=== PATIENT | male | born 1940 | race Caucasian/White ===

== ENCOUNTER 2017-07-20 14:45 | Emergency (ER) | payer MEDICARE, BC ==
[2017-07-20 15:04] VITALS: BP 140/74
[2017-07-20] MEDS ORDERED: HYDROmorphone 1 MG/ML Syringe IM ONE (15:24)
[2017-07-20] MEDS ORDERED: Ketorolac 60 MG/2 ML SDV IM ONE (15:25)
--- NOTE | 2017-07-20 15:31 | EDM.PDOC ---
ED HPI GENERAL MEDICAL PROBLEM - General Chief Complaint: Lower Extremity Injury/Pain Stated Complaint: LEFT HIP PAIN Time Seen by Provider: 07/20/17 15:26 Source of Information: Reports: Patient, Family History Limitations: Reports: No Limitations - History of Present Illness INITIAL COMMENTS - FREE TEXT/NARRATIVE: pt is scheduled for a total hip with Dr Gilmore for September 08. The pt was walking in some deep snow and after that he has been very uncomfortable. He presently is on a tapering course of predisone which was given him at the clinic. He ths far does not feel it has been helpful. Duration: Day(s): Location: Reports: Lower Extremity, Left Associated Symptoms: Reports: No Other Symptoms - Related Data Allergies Allergy/AdvReac Type Severity Reaction Status Date / Time meperidine HCl [From Demerol] Allergy Rash Verified 07/21/17 22:19 amoxicillin AdvReac Diarrhea Verified 07/21/17 22:19 Home Meds: Home Meds Aspirin 325 mg PO DAILY 11/01/13 [History] Lisinopril 20 mg PO DAILY 11/01/13 [History] Simvastatin [Zocor] 20 mg PO BEDTIME 11/01/13 [History] Fenofibrate 160 mg PO DAILY 05/11/15 [History] metFORMIN HCl [Metformin HCl ER] 500 mg PO BID 05/11/15 [History] Albuterol [Ventolin HFA] 1 - 2 puff IH Q4H PRN 07/14/15 [History] glipiZIDE [Glucotrol] 10 mg PO DAILY 07/14/15 [History] Pantoprazole Sodium [Protonix] 40 mg PO DAILY 05/14/16 [History] amLODIPine [Norvasc] 07/20/17 [History] predniSONE [Prednisone] 1 tab PO DAILY 07/20/17 [History] Past Medical History HEENT History: Reports: Epistaxis, Hard of Hearing Other HEENT History: - Cardiovascular History: Reports: Heart Murmur, High Cholesterol, Hypertension, Other (See Below) Other Cardiovascular History: elevated triglycerides Respiratory History: Reports: Asthma Gastrointestinal History: Reports: GERD Musculoskeletal History: Reports: Back Pain, Chronic, Fracture, Neck Pain, Chronic Neurological History: Reports: Concussion Endocrine/Metabolic History: Reports: Diabetes, Type II, Obesity/BMI 30+ Dermatologic History: Reports: Other (See Below) Other Dermatologic History: chronic wound left foot - Infectious Disease History Infectious Disease History: Reports: Chicken Pox, Measles, Mumps - Past Surgical History GI Surgical History: Reports: Colonoscopy Musculoskeletal Surgical History: Reports: Arthroscopic Knee, Other (See Below) Social & Family History - Tobacco Use Smoking Status *Q: Never Smoker Used Tobacco, but Quit: Yes Month/Year Tobacco Last Used: 0 Second Hand Smoke Exposure: No - Caffeine Use Caffeine Use: Reports: Coffee - Recreational Drug Use Recreational Drug Use: No - Living Situation & Occupation Living situation: Reports: Occupation: Retired Review of Systems - Review of Systems Review Of Systems: See Below Constitutional: Reports: No Symptoms Eyes: Reports: No Symptoms Ears: Reports: No Symptoms Nose: Reports: No Symptoms Mouth/Throat: Reports: No Symptoms Respiratory: Reports: No Symptoms Cardiovascular: Reports: No Symptoms GI/Abdominal: Reports: No Symptoms Genitourinary: Reports: No Symptoms Musculoskeletal: Reports: Other (pain in th left hip) Skin: Reports: No Symptoms Neurological: Reports: No Symptoms ED EXAM, GENERAL - Physical Exam Exam: See Below Free Text/Narrative:: pt is having severe pain in the left hip over the joint capsule and toward the front of the leg. He has no pain down the back of the leg. Exam Limited By: No Limitations General Appearance: Alert, Anxious Extremities: Other ( tender over the joint capsule and by the groin. ) Course - Vital Signs Last Recorded V/S: Last Vital Signs Temp 35.2 C 07/20/17 15:11 Pulse 83 07/20/17 15:11 Resp 20 07/20/17 15:11 BP 140/74 07/20/17 15:11 Pulse Ox 98 07/20/17 15:11 - Orders/Labs/Meds Meds: Medications Discontinued Medications Generic Name Dose Route Start Last Admin Trade Name Freq PRN Reason Stop Dose Admin Hydromorphone HCl 1 mg 07/20/17 15:24 07/20/17 15:32 Dilaudid IM 07/20/17 15:25 1 mg ONETIME ONE Administration Ketorolac Tromethamine 60 mg 07/20/17 15:25 07/20/17 15:32 Toradol IM 07/20/17 15:26 60 mg ONETIME ONE Administration - Re-Assessments/Exams Free Text/Narrative Re-Assessment/Exam: 07/20/17 15:32 Pt was given torodol 60mgim and dilaudid 1 mg im Departure - Departure Time of Disposition: 16:50 Disposition: Home, Self-Care 01 Condition: Fair Clinical Impression: Degenerative arthritis of hip - Discharge Information Instructions: Arthritis, [id number] Referrals: Kj Zhang MD [Primary Care Provider] - Forms: ED Department Discharge Care Plan Goals: moist warm packs to the area, finish the predisone, when the predisone is done start motrin 600mg tid for the next 10 days and then stop, percocet 5/325 q6h prn for pain. If the pain is not improving consider calling Dr Gilmore and see if there is any possibility this can be done sooner
== END 2017-07-20 16:49 | disposition home or self-care (01) ==
LOC: JP.ED 14:45
DX: M16.12 Unilateral primary osteoarthritis, left hip (principal); E78.00 Pure hypercholesterolemia, unspecified; I10 Essential (primary) hypertension; J45.909 Unspecified asthma, uncomplicated; K21.9 Gastro-esophageal reflux disease without esophagitis; E11.9 Type 2 diabetes mellitus without complications; E66.9 Obesity, unspecified; Z88.1 Allergy status to other antibiotic agents; Z88.8 Allergy status to other drugs, medicaments and biological substances; Z79.82 Long term (current) use of aspirin; Z79.899 Other long term (current) drug therapy; Z79.84 Long term (current) use of oral hypoglycemic drugs; Z68.35 Body mass index [BMI] 35.0-35.9, adult
CPT/HCPCS: 96372; 99283; J1170; J1885

== ENCOUNTER 2017-07-21 20:04 | Emergency (ER) | payer MEDICARE, BC ==
[2017-07-21 20:44] VITALS: BP 147/73
--- NOTE | 2017-07-21 22:56 | EDM.PDOC ---
ED HPI GENERAL MEDICAL PROBLEM - General Chief Complaint: Lower Extremity Injury/Pain Stated Complaint: HIP AND LEG PAIN Time Seen by Provider: 07/21/17 22:46 Source of Information: Reports: Patient, Family, Old Records, RN Notes Reviewed History Limitations: Reports: No Limitations - History of Present Illness INITIAL COMMENTS - FREE TEXT/NARRATIVE: 77-year-old gentleman presents to the emergency department day complaint of leg pain, he has known history of degenerative joint disease is scheduled to have hip replacement done on the left hip September 08 however the surgeries postponed secondary to his elevated A1c. He was evaluated in the emergency department yesterday for hip pain was treated with both Toradol and Dilaudid he states he received no relief from either of these medications, does use Percocet at home also states he receives no relief from these medications. He states over the last 24 hours he has had an increase in swelling around the knee as well as the calf Left Leg Pain Score (Numeric/FACES): 10 - Related Data Allergies Allergy/AdvReac Type Severity Reaction Status Date / Time meperidine HCl [From Demerol] Allergy Rash Verified 07/21/17 22:19 amoxicillin AdvReac Diarrhea Verified 07/21/17 22:19 Home Meds: Home Meds Aspirin 325 mg PO DAILY 11/01/13 [History] Lisinopril 20 mg PO DAILY 11/01/13 [History] Simvastatin [Zocor] 20 mg PO BEDTIME 11/01/13 [History] Fenofibrate 160 mg PO DAILY 05/11/15 [History] metFORMIN HCl [Metformin HCl ER] 500 mg PO BID 05/11/15 [History] Albuterol [Ventolin HFA] 1 - 2 puff IH Q4H PRN 07/14/15 [History] glipiZIDE [Glucotrol] 10 mg PO DAILY 07/14/15 [History] Pantoprazole Sodium [Protonix] 40 mg PO DAILY 05/14/16 [History] amLODIPine [Norvasc] 07/20/17 [History] predniSONE [Prednisone] 1 tab PO DAILY 07/20/17 [History] Past Medical History HEENT History: Reports: Epistaxis, Hard of Hearing, Impaired Vision Other HEENT History: - Cardiovascular History: Reports: Heart Murmur, High Cholesterol, Hypertension, SOB on Exertion, Other (See Below) Other Cardiovascular History: elevated triglycerides Respiratory History: Reports: Asthma Gastrointestinal History: Reports: GERD Musculoskeletal History: Reports: Back Pain, Chronic, Fracture, Neck Pain, Chronic Neurological History: Reports: Concussion Endocrine/Metabolic History: Reports: Diabetes, Type II, Obesity/BMI 30+ Dermatologic History: Reports: Other (See Below) Other Dermatologic History: chronic wound left foot - Infectious Disease History Infectious Disease History: Reports: Chicken Pox, Measles, Mumps - Past Surgical History HEENT Surgical History: Reports: Adenoidectomy, Tonsillectomy GI Surgical History: Reports: Colonoscopy, Hernia, Inguinal Musculoskeletal Surgical History: Reports: Arthroscopic Knee, Other (See Below) Social & Family History - Family History Family Medical History: Noncontributory - Tobacco Use Smoking Status *Q: Never Smoker Used Tobacco, but Quit: Yes Month/Year Tobacco Last Used: 0 Second Hand Smoke Exposure: No - Caffeine Use Caffeine Use: Reports: Coffee - Recreational Drug Use Recreational Drug Use: No - Living Situation & Occupation Living situation: Reports: Occupation: Retired Review of Systems - Review of Systems Review Of Systems: See Below Constitutional: Reports: No Symptoms Musculoskeletal: Reports: Leg Pain, Joint Pain (Hip and knee pain) ED EXAM, GENERAL - Physical Exam Exam: See Below Free Text/Narrative:: Examination of the left lower extremity I don't appreciate any erythema there is he does have some edema appreciated about the knee is not particularly tender to touch along the joint line medially or laterally he is tender to touch over the greater trochanter on the left side and he has some edema appreciated in the calf it is tight but not tender to touch when compared to the right calf Exam Limited By: No Limitations General Appearance: Alert, WD/WN, No Apparent Distress Respiratory/Chest: No Respiratory Distress Course - Vital Signs Last Recorded V/S: Last Vital Signs Temp 97.6 F 07/21/17 22:22 Pulse 68 07/21/17 22:22 Resp 18 07/21/17 22:22 BP 147/73 H 07/21/17 22:22 Pulse Ox 97 07/21/17 22:22 - Orders/Labs/Meds Orders: Active Orders 24 hr Category Date Time Status CBC WITH AUTO DIFF [HEME] Stat Lab 07/21/17 23:00 Results ESR [SEDIMENTATION RATE MANUAL] [HEME] Stat Lab 07/21/17 23:00 Results URIC ACID [CHEM] Stat Lab 07/21/17 23:00 Ordered Labs: Laboratory Tests 07/21/17 07/21/17 07/21/17 Range/Units 23:00 23:00 23:00 WBC 9.7 (4.5-11.0) K/uL RBC 3.81 L (4.30-5.90) M/uL Hgb 12.4 (12.0-15.0) g/dL Hct 35.5 L (40.0-54.0) % MCV 93 (80-98) fL MCH 33 H (27-31) pg MCHC 35 (32-36) % Plt Count 308 (150-400) K/uL Neut % (Auto) 69 H (36-66) % Lymph % (Auto) 20 L (24-44) % Piatt % (Auto) 11 H (2-6) % Eos % (Auto) 0 L (2-4) % Baso % (Auto) 0 (0-1) % D-Dimer, Quantitative < 100 (0.0-400.0) ng/mL Sodium (140-148) mmol/L Potassium (3.6-5.2) mmol/L Chloride (100-108) mmol/L Carbon Dioxide (21-32) mmol/L Anion Gap (5.0-14.0) mmol/L BUN (7-18) mg/dL Creatinine (0.8-1.3) mg/dL Est Cr Clr Drug Dosing mL/min Estimated GFR (MDRD) (>60) Glucose (74-106) mg/dL Uric Acid (3.5-7.2) mg/dL Calcium (8.5-10.1) mg/dL C-Reactive Protein 0.08 (0.0-0.3) mg/dL 07/21/17 07/21/17 Range/Units 23:00 23:00 WBC (4.5-11.0) K/uL RBC (4.30-5.90) M/uL Hgb (12.0-15.0) g/dL Hct (40.0-54.0) % MCV (80-98) fL MCH (27-31) pg MCHC (32-36) % Plt Count (150-400) K/uL Neut % (Auto) (36-66) % Lymph % (Auto) (24-44) % [place] % (Auto) (2-6) % Eos % (Auto) (2-4) % Baso % (Auto) (0-1) % D-Dimer, Quantitative (0.0-400.0) ng/mL Sodium 136 L (140-148) mmol/L Potassium 4.7 (3.6-5.2) mmol/L Chloride 99 L (100-108) mmol/L Carbon Dioxide 30 (21-32) mmol/L Anion Gap 11.7 (5.0-14.0) mmol/L BUN 29 H (7-18) mg/dL Creatinine 1.1 (0.8-1.3) mg/dL Est Cr Clr Drug Dosing 52.36 mL/min Estimated GFR (MDRD) > 60 (>60) Glucose 226 H (74-106) mg/dL Uric Acid 3.0 L (3.5-7.2) mg/dL Calcium 9.4 (8.5-10.1) mg/dL C-Reactive Protein (0.0-0.3) mg/dL Departure - Departure Time of Disposition: 00:11 Disposition: Home, Self-Care 01 Condition: Fair Clinical Impression: Leg pain Qualifiers: Laterality: left Qualified Code(s): M79.605 - Pain in left leg - Discharge Information Referrals: Tito Galaviz MD [Primary Care Provider] - Forms: ED Department Discharge Additional Instructions: Continue to use ice and elevation as well as Olivier wrap for leg swelling, please keep your follow-up appointment with orthopedics, follow with primary care in 3- 5 days if not better - My Orders Last 24 Hours: My Active Orders 07/21/17 23:00 CBC WITH AUTO DIFF [HEME] Stat ESR [SEDIMENTATION RATE MANUAL] [HEME] Stat URIC ACID [CHEM] Stat - Assessment/Plan Last 24 Hours: My Active Orders 07/21/17 23:00 CBC WITH AUTO DIFF [HEME] Stat ESR [SEDIMENTATION RATE MANUAL] [HEME] Stat URIC ACID [CHEM] Stat Plan: Assessment Acuity = acute Site and laterality = left leg pain Etiology = probably related to osteoarthritis Manifestations = none Location of injury = Home Lab values = CMP unremarkable CBC unremarkable uric acid negative, d-dimer negative Plan He is going to use ice and elevation he does have Percocet at home he will use if needed , follow up with primary care 3-5 days if not better This note was dictated using [employer] voice recognition software please call with any questions on syntax or greer.
== END 2017-07-22 00:36 | disposition home or self-care (01) ==
LOC: JP.ED 20:04
DX: M79.605 Pain in left leg (principal); I10 Essential (primary) hypertension; E66.9 Obesity, unspecified; E11.9 Type 2 diabetes mellitus without complications; J45.909 Unspecified asthma, uncomplicated; Z88.1 Allergy status to other antibiotic agents; Z88.8 Allergy status to other drugs, medicaments and biological substances; Z79.82 Long term (current) use of aspirin; Z79.899 Other long term (current) drug therapy
CPT/HCPCS: 36415; 80048; 84550; 85025; 85379; 85651; 86140; 99284

== ENCOUNTER 2017-07-26 18:44 | Emergency (ER) | payer MEDICARE, BC ==
[2017-07-26 18:59] VITALS: BP 123/92
[2017-07-26] MEDS ORDERED: HYDROmorphone 1 MG/ML Syringe IM ONE (19:10)
--- NOTE | 2017-07-26 19:17 | EDM.PDOC ---
ED HPI GENERAL MEDICAL PROBLEM - General Chief Complaint: Lower Extremity Injury/Pain Stated Complaint: HIP HURTS NOT AN ACCIDENT Time Seen by Provider: 07/26/17 19:14 Source of Information: Reports: Patient History Limitations: Reports: No Limitations - History of Present Illness INITIAL COMMENTS - FREE TEXT/NARRATIVE: pt arrived with svre pain in the whole left leg. He has pain over the buttock going down the back of the leg and coming around to the groin. He states in the last 2 days he thinks it has gotten much worse. He is bearly able to walk on it. He is just finishing his last predisone. Onset: Gradual Duration: Day(s):, Getting Worse Location: Reports: Back, Lower Extremity, Left Associated Symptoms: Reports: No Other Symptoms Left Hip Pain Score (Numeric/FACES): 10 - Related Data Allergies Allergy/AdvReac Type Severity Reaction Status Date / Time meperidine HCl [From Demerol] Allergy Rash Verified 07/26/17 19:00 amoxicillin AdvReac Diarrhea Verified 07/26/17 19:00 Home Meds: Home Meds Aspirin 325 mg PO DAILY 11/01/13 [History] Lisinopril 20 mg PO DAILY 11/01/13 [History] Simvastatin [Zocor] 20 mg PO BEDTIME 11/01/13 [History] Fenofibrate 160 mg PO DAILY 05/11/15 [History] metFORMIN HCl [Metformin HCl ER] 500 mg PO BID 05/11/15 [History] Albuterol [Ventolin HFA] 1 - 2 puff IH Q4H PRN 07/14/15 [History] glipiZIDE [Glucotrol] 10 mg PO DAILY 07/14/15 [History] Pantoprazole Sodium [Protonix] 40 mg PO DAILY 05/14/16 [History] amLODIPine [Norvasc] 1 tab PO DAILY 07/20/17 [History] predniSONE [Prednisone] 2 tab PO DAILY 07/20/17 [History] Past Medical History HEENT History: Reports: Epistaxis, Hard of Hearing, Impaired Vision Other HEENT History: - Cardiovascular History: Reports: Heart Murmur, High Cholesterol, Hypertension, SOB on Exertion, Other (See Below) Other Cardiovascular History: elevated triglycerides Respiratory History: Reports: Asthma Gastrointestinal History: Reports: GERD Musculoskeletal History: Reports: Back Pain, Chronic, Fracture, Neck Pain, Chronic Neurological History: Reports: Concussion Endocrine/Metabolic History: Reports: Diabetes, Type II, Obesity/BMI 30+ Dermatologic History: Reports: Other (See Below) Other Dermatologic History: chronic wound left foot - Infectious Disease History Infectious Disease History: Reports: Chicken Pox, Measles, Mumps - Past Surgical History GI Surgical History: Reports: Colonoscopy, Hernia, Inguinal Musculoskeletal Surgical History: Reports: Arthroscopic Knee, Other (See Below) Social & Family History - Family History Family Medical History: Noncontributory - Tobacco Use Smoking Status *Q: Unknown Ever Smoked Used Tobacco, but Quit: Yes Month/Year Tobacco Last Used: 0 Second Hand Smoke Exposure: No - Caffeine Use Caffeine Use: Reports: Coffee - Recreational Drug Use Recreational Drug Use: No - Living Situation & Occupation Living situation: Reports: Occupation: Retired Review of Systems - Review of Systems Review Of Systems: See Below Constitutional: Reports: No Symptoms Eyes: Reports: No Symptoms Ears: Reports: No Symptoms Nose: Reports: No Symptoms Mouth/Throat: Reports: No Symptoms Respiratory: Reports: No Symptoms Cardiovascular: Reports: No Symptoms GI/Abdominal: Reports: No Symptoms Genitourinary: Reports: No Symptoms Musculoskeletal: Reports: Other ( severe pain in the lft hip and left lumbar area. ) ED EXAM, GENERAL - Physical Exam Exam: See Below Free Text/Narrative:: pt arrived with pain in the left hip and leg. He has severe pain going down the back of the left leg. He is very tender in the calf of the leg. He has known lumbar disc disease. Exam Limited By: No Limitations General Appearance: Severe Distress Ears: Normal TMs Nose: Normal Inspection Throat/Mouth: Normal Inspection Head: Atraumatic Neck: Normal Inspection Respiratory/Chest: No Respiratory Distress Cardiovascular: Regular Rate, Rhythm GI/Abdominal: Soft, Non-Tender (Male) Exam: Deferred Rectal (Males) Exam: Deferred Back Exam: Other ( Pt ids markedly tender in the left lumbar area. He has a positive straight leg raising. He has normal pulse in his fet. ) Neurological: Alert, Oriented, Normal Cognition, Other (pt is very uncomfortable. ) Course - Vital Signs Last Recorded V/S: Last Vital Signs Temp 36.6 C 07/26/17 18:59 Pulse 107 H 07/26/17 18:59 Resp 20 07/26/17 18:59 BP 123/92 H 07/26/17 18:59 Pulse Ox 97 07/26/17 18:59 - Orders/Labs/Meds Orders: Active Orders 24 hr Category Date Time Status Hip Min 2V or 3V w Pelvis Lt [CR] Stat Exams 07/26/17 19:11 Taken Lumbar Spine 2 or 3V [CR] Stat Exams 07/26/17 19:11 Taken VL Duplex Lwr Ext Veins Ltd Lt [US] Stat Exams 07/26/17 19:10 Taken Labs: Laboratory Tests 07/26/17 07/26/17 Range/Units 19:29 19:29 WBC 9.7 (4.5-11.0) K/uL RBC 3.89 L (4.30-5.90) M/uL Hgb 12.6 (12.0-15.0) g/dL Hct 36.6 L (40.0-54.0) % MCV 94 (80-98) fL MCH 32 H (27-31) pg MCHC 34 (32-36) % Plt Count 335 (150-400) K/uL Neut % (Auto) 81 H (36-66) % Lymph % (Auto) 11 L (24-44) % [place] % (Auto) 8 H (2-6) % Eos % (Auto) 0 L (2-4) % Baso % (Auto) 0 (0-1) % Sodium 132 L (140-148) mmol/L Potassium 4.7 (3.6-5.2) mmol/L Chloride 96 L (100-108) mmol/L Carbon Dioxide 27 (21-32) mmol/L Anion Gap 13.7 (5.0-14.0) mmol/L BUN 18 (7-18) mg/dL Creatinine 1.2 (0.8-1.3) mg/dL Est Cr Clr Drug Dosing 48.00 mL/min Estimated GFR (MDRD) 59 L (>60) Glucose 476 H* (74-106) mg/dL Calcium 8.9 (8.5-10.1) mg/dL Total Bilirubin 0.3 (0.2-1.0) mg/dL AST 19 (15-37) U/L ALT 30 (12-78) U/L Alkaline Phosphatase 157 H (46-116) U/L Total Protein 7.0 (6.4-8.2) g/dL Albumin 4.1 (3.4-5.0) g/dL Globulin 2.9 (2.3-3.5) g/dL Albumin/Globulin Ratio 1.4 (1.2-2.2) Meds: Medications Discontinued Medications Generic Name Dose Route Start Last Admin Trade Name Freq PRN Reason Stop Dose Admin Cyclobenzaprine HCl 10 mg 07/26/17 20:27 07/26/17 20:34 Flexeril PO 07/26/17 20:28 10 mg ONETIME ONE Administration Hydromorphone HCl 1 mg 07/26/17 19:10 07/26/17 19:20 Dilaudid IM 07/26/17 19:11 1 mg ONETIME ONE Administration Insulin Human Regular 5 unit 07/26/17 20:00 07/26/17 20:18 Novolin R SUBCUT 07/26/17 20:01 5 unit ONETIME ONE Administration Protocol Oxycodone/Acetaminophen 1 tab 07/26/17 20:28 07/26/17 20:34 Percocet 325-10 Mg PO 07/26/17 20:29 1 tab ONETIME ONE Administration - Re-Assessments/Exams Free Text/Narrative Re-Assessment/Exam: 07/26/17 20:33 pt was given dilaudid 1 mg im with some relief. He was also given flexeril 10mg and percocet 10/325 po. .. His bs is very high from the predisone. He was given insulin 5 mg subq. Departure - Departure Time of Disposition: 20:36 Disposition: Home, Self-Care 01 Condition: Fair Clinical Impression: Lumbar disc disease with radiculopathy, Degenerative arthritis of hip - Discharge Information Referrals: PCP,None [Primary Care Provider] - Forms: ED Department Discharge Care Plan Goals: rtc Friday for a MRI of lumbar spin , appt with Dr Gilmore at the clinic, flexeril 10mg hs, percocet 5/325 2 tabs q6h, taper predisone because of the high sugars sugars, 1 tab tomorrow, 1/2 tab the next day then stop, cont ice to the site. - My Orders Last 24 Hours: My Active Orders 07/26/17 19:10 VL Duplex Lwr Ext Veins Ltd Lt [US] Stat 07/26/17 19:11 Hip Min 2V or 3V w Pelvis Lt [CR] Stat Lumbar Spine 2 or 3V [CR] Stat - Assessment/Plan Last 24 Hours: My Active Orders 07/26/17 19:10 VL Duplex Lwr Ext Veins Ltd Lt [US] Stat 07/26/17 19:11 Hip Min 2V or 3V w Pelvis Lt [CR] Stat Lumbar Spine 2 or 3V [CR] Stat
[2017-07-26] MEDS ORDERED: Insulin Regular, Human 100 Units/ML 10 ML Vial SUBCUT ONE (20:00)
[2017-07-26] MEDS ORDERED: Cyclobenzaprine 10 MG Tab PO ONE (20:27)
[2017-07-26] MEDS ORDERED: Acetaminophen/oxyCODONE 325-10 MG Tab PO ONE (20:28)
--- NOTE | 2017-07-28 09:41 | CR ---
Hip Min 2V or 3V w Pelvis Lt CLINICAL HISTORY: Left hip pain FINDINGS: No acute fracture or dislocation is noted. No destructive changes are present. The joint sp aces are mildly narrowed bilaterally. There is moderate acetabular spurring bilaterally. The there is the calf type deformity in the proximal left femur. 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
--- NOTE | 2017-07-28 09:43 | CR ---
Lumbar Spine 2 or 3V CLINICAL HISTORY: Back and left leg pain FINDINGS: The vertebral body heights are maintained. Vertebral body heights are maintained. There is the diffuse spondylosis. There is disc space narrowing at L5-S1 and L2-3.There are some osteoarthriti c changes in the lower lumbar facets. There is a grade the 1 retrolisthesis of L1 on L2 and L2 on L3. This is secondary to the facet disease. IMPRESSION: Diffuse degenerative disc disease Facet osteoarthropathy No fracture
--- NOTE | 2017-07-28 09:45 | US ---
VL Duplex Lwr Ext Veins Ltd Lt CLINICAL HISTORY: Left leg swelling FINDINGS: Real-time and Doppler images are obtained for left lower extremity. No filling defects are identified in the deep venous system. All veins were compressible in the calf and thigh. There was au gmentation demonstrated throughout IMPRESSION: No evidence of deep venous thrombosis in the left lower extremity
== END 2017-07-26 20:59 | disposition home or self-care (01) ==
LOC: JP.ED 18:44
DX: M54.16 Radiculopathy, lumbar region (principal); K21.9 Gastro-esophageal reflux disease without esophagitis; E78.00 Pure hypercholesterolemia, unspecified; I10 Essential (primary) hypertension; J45.909 Unspecified asthma, uncomplicated; M16.12 Unilateral primary osteoarthritis, left hip; Z88.1 Allergy status to other antibiotic agents; Z88.8 Allergy status to other drugs, medicaments and biological substances; Z79.82 Long term (current) use of aspirin; Z79.899 Other long term (current) drug therapy
CPT/HCPCS: 36415; 72100; 73502; 80053; 85025; 93971; 96372; 99284; A9270; J1170

== ENCOUNTER 2019-01-01 11:57 | Emergency (ER) | payer MEDICARE, BC ==
[2019-01-01 12:10] VITALS: BP 149/74; PULSE 65
--- NOTE | 2019-01-01 12:51 | EDM.PDOC ---
ED HPI GENERAL MEDICAL PROBLEM - General Chief Complaint: Abdominal Pain Stated Complaint: STOMACH PAIN ON LEFT SIDE Time Seen by Provider: 01/01/19 12:26 Source of Information: Reports: Patient, Family, Old Records, RN Notes Reviewed History Limitations: Reports: No Limitations - History of Present Illness INITIAL COMMENTS - FREE TEXT/NARRATIVE: 78-year-old gentleman presents emergency department today complaint of abdominal pain, he states that abdominal pain for 5 days describes it more on the left side of his abdomen he is very sensitive to any touch, no nausea vomiting shortness of breath fevers difficulty with bowel movements. Was in the clinic 2 days ago evaluation included blood work and CT scan, CT scan demonstrated some hydronephrosis on the left side but no stone was appreciated Left Lower Abdomen Pain Score (Numeric/FACES): 8 - Related Data Allergies Allergy/AdvReac Type Severity Reaction Status Date / Time meperidine HCl [From Demerol] Allergy Rash Verified 01/01/19 12:16 amoxicillin AdvReac Diarrhea Verified 01/01/19 12:16 Home Meds: Home Meds Aspirin 81 mg PO DAILY 11/01/13 [History] Lisinopril 20 mg PO DAILY 11/01/13 [History] Fenofibrate 160 mg PO DAILY 05/11/15 [History] metFORMIN HCl [Metformin HCl ER] 2 tab PO BID 05/11/15 [History] Albuterol [Ventolin HFA] 1 - 2 puff IH Q4H PRN 07/14/15 [History] glipiZIDE [Glucotrol] 10 mg PO BID 07/14/15 [History] Pantoprazole Sodium [Protonix] 40 mg PO DAILY 05/14/16 [History] amLODIPine [Norvasc] 5 tab PO DAILY 07/20/17 [History] Cyclobenzaprine [Flexeril] 1 tab PO DAILY PRN 07/08/18 [History] Metoprolol Succinate [Toprol XL 50mg] 1 tab PO DAILY 07/08/18 [History] Nitroglycerin [Nitrostat] 1 tab SL ASDIRECTED PRN 07/08/18 [History] Nystatin 1 appful TOP TID PRN 07/08/18 [History] Rosuvastatin [Crestor] 20 mg PO DAILY 07/08/18 [History] Past Medical History HEENT History: Reports: Epistaxis, Hard of Hearing, Impaired Vision Other HEENT History: - Cardiovascular History: Reports: Heart Murmur, High Cholesterol, Hypertension, SOB on Exertion, Other (See Below) Other Cardiovascular History: elevated triglycerides Respiratory History: Reports: Asthma Gastrointestinal History: Reports: GERD Musculoskeletal History: Reports: Back Pain, Chronic, Fracture, Neck Pain, Chronic Neurological History: Reports: Concussion Endocrine/Metabolic History: Reports: Diabetes, Type II, Obesity/BMI 30+ Hematologic History: Reports: Blood Transfusion(s) Dermatologic History: Reports: Other (See Below) Other Dermatologic History: chronic wound left foot - Infectious Disease History Infectious Disease History: Reports: Chicken Pox, Measles, Mumps - Past Surgical History Head Surgeries/Procedures: Reports: None HEENT Surgical History: Reports: Adenoidectomy, Tonsillectomy Cardiovascular Surgical History: Reports: None GI Surgical History: Reports: Colonoscopy, Hernia, Inguinal Endocrine Surgical History: Reports: None Neurological Surgical History: Reports: C-Spine, Spinal Fusion Musculoskeletal Surgical History: Reports: Arthroscopic Knee, Other (See Below) Other Musculoskeletal Surgeries/Procedures:: right ankle Dermatological Surgical History: Reports: Skin Graft Social & Family History - Family History Family Medical History: Noncontributory - Tobacco Use Smoking Status *Q: Former Smoker Used Tobacco, but Quit: Yes Month/Year Tobacco Last Used: 1979 Second Hand Smoke Exposure: No - Caffeine Use Caffeine Use: Reports: Coffee, Soda - Recreational Drug Use Recreational Drug Use: No - Living Situation & Occupation Living situation: Reports: Occupation: Retired ED ROS GENERAL - Review of Systems Review Of Systems: See Below Constitutional: Reports: No Symptoms HEENT: Reports: No Symptoms Respiratory: Reports: No Symptoms Cardiovascular: Reports: No Symptoms GI/Abdominal: Reports: Abdominal Pain. Denies: Nausea, Vomiting : Reports: No Symptoms Skin: Reports: Rash ED EXAM, GI/ABD - Physical Exam Exam: See Below Exam Limited By: No Limitations General Appearance: Alert, WD/WN, No Apparent Distress Respiratory/Chest: No Respiratory Distress GI/Abdominal Exam: Soft, No Distention, No Mass, Tender (Tender along the dermatome left side, to light touch) Skin Exam: Zoster-Like Rash Front/Back Body Diagram: 1 - Vesicular type rash Course - Vital Signs Last Recorded V/S: Last Vital Signs Temp 98.1 F 01/01/19 12:15 Pulse 65 01/01/19 12:15 Resp 18 01/01/19 12:15 BP 149/74 H 01/01/19 12:15 Pulse Ox 96 01/01/19 12:15 Departure - Departure Time of Disposition: 12:50 Disposition: Home, Self-Care 01 Condition: Fair Clinical Impression: Shingles Qualifiers: Herpes zoster complications: without complications Qualified Code(s): B02.9 - Zoster without complications - Discharge Information Referrals: Kj Zhang MD [Primary Care Provider] - Additional Instructions: Take full course of antivirals use hydrocodone as needed for pain control, Please followup with your primary care provider in 5-7 days if not better, please call return to the emergency department with worsening of symptoms. - Assessment/Plan Plan: Assessment Acuity = acute Site and laterality = varicella-zoster's exacerbation Etiology = herpesvirus Manifestations = pain Location of injury = Home Lab values = none Plan We'll treat to Valtrex 1 g by mouth 3 times a day 7 days also hydrocodone 5/ 325 one tab by mouth 3 times a day when necessary total #20 him follow-up with his primary care in 5-7 days if no improvement medications faxed to [facility] This note was dictated using [employer] recognition software please call with any questions on syntax or grammar.
== END 2019-01-01 13:12 | disposition home or self-care (01) ==
LOC: JP.ED 11:57
DX: B02.9 Zoster without complications (principal); I10 Essential (primary) hypertension; E11.9 Type 2 diabetes mellitus without complications; K21.9 Gastro-esophageal reflux disease without esophagitis; E78.00 Pure hypercholesterolemia, unspecified; J45.909 Unspecified asthma, uncomplicated; E66.9 Obesity, unspecified; Z68.31 Body mass index [BMI] 31.0-31.9, adult; Z87.891 Personal history of nicotine dependence; Z88.5 Allergy status to narcotic agent; Z88.1 Allergy status to other antibiotic agents; Z79.82 Long term (current) use of aspirin; Z79.84 Long term (current) use of oral hypoglycemic drugs; Z79.899 Other long term (current) drug therapy
CPT/HCPCS: 99283

== ENCOUNTER 2020-06-18 13:51 | Emergency (ER) | payer MEDICARE, BC ==
[2020-06-18 14:11] VITALS: BP 136/69; PULSE 87
--- NOTE | 2020-06-18 14:27 | EDM.PDOC ---
ED HPI GENERAL MEDICAL PROBLEM - General Chief Complaint: Lower Extremity Injury/Pain Stated Complaint: POSSIBLE INF. LEFT FOOT Time Seen by Provider: 06/18/20 14:15 Source of Information: Reports: Patient, Family, Old Records, RN History Limitations: Reports: No Limitations - History of Present Illness INITIAL COMMENTS - FREE TEXT/NARRATIVE: 80 yo male presents with puffiness in both legs and a slight rash to both legs of more recent onset. He has been sleeping in his recliner for a several weeks due to a dry cough. He wonders if this might be related to his lisinopril. He was concerned the rash might represent an infection. Onset: Gradual Onset Date: 06/16/20 Duration: Day(s): (2), Getting Worse Location: Reports: Lower Extremity, Left, Lower Extremity, Right Quality: Reports: Dull Severity: Mild Improves with: Reports: None Worsens with: Reports: Other (time) Context: Reports: Other (See HPI) Associated Symptoms: Reports: No Other Symptoms. Denies: Fever/Chills Treatments FINAL FINISHER FORGING DIES: Reports: Other (see below) (none) left foot Pain Score (Numeric/FACES): 8 - Related Data Allergies Allergy/AdvReac Type Severity Reaction Status Date / Time meperidine HCl [From Demerol] Allergy Rash Verified 06/18/20 14:07 amoxicillin AdvReac Diarrhea Verified 06/18/20 14:07 prednisone AdvReac Edema Verified 06/18/20 14:07 Home Meds: Home Meds Aspirin 81 mg PO DAILY 11/01/13 [History] Lisinopril 20 mg PO DAILY 11/01/13 [History] Fenofibrate 160 mg PO DAILY 05/11/15 [History] metFORMIN HCl [Metformin HCl ER] 1,000 mg PO BID 05/11/15 [History] Albuterol [Ventolin HFA] 1 - 2 puff IH Q4H PRN 07/14/15 [History] glipiZIDE [Glucotrol] 10 mg PO DAILY 07/14/15 [History] Pantoprazole Sodium [Protonix] 40 mg PO DAILY 05/14/16 [History] amLODIPine [Norvasc] 5 tab PO BID 07/20/17 [History] Metoprolol Succinate [Toprol XL 50mg] 50 mg PO DAILY 07/08/18 [History] Nitroglycerin [Nitrostat] 1 tab SL ASDIRECTED PRN 07/08/18 [History] Nystatin 1 appful TOP TID PRN 07/08/18 [History] Rosuvastatin [Crestor] 20 mg PO DAILY 07/08/18 [History] Hydrocodone/Acetaminophen [Hydrocodon-Acetaminophen 5-325] 1 each PO TID PRN #20 tablet 01/01/19 [Rx] Isosorbide Mononitrate [Imdur] 30 mg PO DAILY 09/13/19 [History] Telmisartan 40 mg PO DAILY #30 tablet 06/18/20 [Rx] Past Medical History HEENT History: Reports: Epistaxis, Hard of Hearing, Impaired Vision Other HEENT History: - Cardiovascular History: Reports: Heart Murmur, High Cholesterol, Hypertension, SOB on Exertion, Other (See Below) Other Cardiovascular History: elevated triglycerides Respiratory History: Reports: Asthma Gastrointestinal History: Reports: GERD Musculoskeletal History: Reports: Back Pain, Chronic, Fracture, Neck Pain, Chronic Neurological History: Reports: Concussion Endocrine/Metabolic History: Reports: Diabetes, Type II, Obesity/BMI 30+ Hematologic History: Reports: Blood Transfusion(s) Dermatologic History: Reports: Other (See Below) Other Dermatologic History: chronic wound left foot - Infectious Disease History Infectious Disease History: Reports: Chicken Pox, Measles, Mumps - Past Surgical History Head Surgeries/Procedures: Reports: None HEENT Surgical History: Reports: Adenoidectomy, Tonsillectomy Cardiovascular Surgical History: Reports: None GI Surgical History: Reports: Colonoscopy, Hernia, Inguinal Endocrine Surgical History: Reports: None Neurological Surgical History: Reports: C-Spine, Spinal Fusion Musculoskeletal Surgical History: Reports: Arthroscopic Knee, Other (See Below) Other Musculoskeletal Surgeries/Procedures:: right ankle Dermatological Surgical History: Reports: Skin Graft Social & Family History - Family History Family Medical History: No Pertinent Family History - Tobacco Use Tobacco Use Status *Q: Never Tobacco User - Caffeine Use Caffeine Use: Reports: Coffee, Soda - Recreational Drug Use Recreational Drug Use: No - Living Situation & Occupation Living situation: Reports: Occupation: Retired Review of Systems - Review of Systems Review Of Systems: See Below Constitutional: Reports: No Symptoms Cardiovascular: Reports: Edema (mild of both legs) Skin: Reports: Rash, Erythema (slight). Denies: Diaphoresis, Bruising, Pruritis, Wound, Urticaria Neurological: Reports: No Symptoms ED EXAM, GENERAL - Physical Exam Exam: See Below Exam Limited By: No Limitations General Appearance: Alert, WD/WN, No Apparent Distress Respiratory/Chest: No Respiratory Distress, No Accessory Muscle Use Cardiovascular: Regular Rate, Rhythm Extremities: Normal Range of Motion, Non-Tender, Pedal Edema (trace pitting edema of both LE's). No: No Pedal Edema, Increased Warmth, Redness Neurological: Alert, Oriented, CN II-XII Intact, Normal Cognition, No Motor/Sensory Deficits Skin Exam: Warm, Dry, Intact, Other (rash to both LE's and ankles consistent with stasis dermatitis.) Course - Vital Signs Last Recorded V/S: Last Vital Signs Temp 36.3 C 06/18/20 14:10 Pulse 87 06/18/20 14:10 Resp 12 06/18/20 14:10 BP 136/69 06/18/20 14:10 Pulse Ox 96 06/18/20 14:10 Departure - Departure Time of Disposition: 14:32 Disposition: Home, Self-Care 01 Condition: Good Clinical Impression: Stasis dermatitis of both legs, Cough due to PATRICIA inhibitor - Discharge Information *PRESCRIPTION DRUG MONITORING PROGRAM REVIEWED*: Not Applicable *COPY OF PRESCRIPTION DRUG MONITORING REPORT IN PATIENT SONYA: Not Applicable Prescriptions: Telmisartan 40 mg PO DAILY #30 tablet Instructions: Stasis Dermatitis Referrals: PCP,None [Primary Care Provider] - Forms: ED Department Discharge Additional Instructions: Stop your lisinopril and substitute telmisartan 40 mg daily. Avoid salt or salty foods. Elevate your legs above your heart as much as possible, consider knee high support stockings. Recheck with your provider in the next 1-2 weeks. Sepsis Event Note (ED) - Evaluation Sepsis Screening Result: No Definite Risk - Focused Exam Vital Signs: Vital Signs Temp Pulse Resp BP Pulse Ox 06/18/20 14:10 36.3 C 87 12 136/69 96
== END 2020-06-18 14:50 | disposition home or self-care (01) ==
LOC: JP.ED 13:51
DX: I87.2 Venous insufficiency (chronic) (peripheral) (principal); R05 Cough; T46.4X5A Adverse effect of angiotensin-converting-enzyme inhibitors, initial encounter; E78.00 Pure hypercholesterolemia, unspecified; I10 Essential (primary) hypertension; J45.909 Unspecified asthma, uncomplicated; K21.9 Gastro-esophageal reflux disease without esophagitis; E11.9 Type 2 diabetes mellitus without complications; E66.9 Obesity, unspecified; Z68.29 Body mass index [BMI] 29.0-29.9, adult; Z88.0 Allergy status to penicillin; Z88.8 Allergy status to other drugs, medicaments and biological substances; Z79.82 Long term (current) use of aspirin; Z79.84 Long term (current) use of oral hypoglycemic drugs; Z79.899 Other long term (current) drug therapy
CPT/HCPCS: 99283

== ENCOUNTER 2021-06-27 14:40 | Emergency (ER) | payer MEDICARE, BC ==
[2021-06-27 15:19] VITALS: BP 133/53; PULSE 54
== END 2021-06-27 17:30 | disposition home or self-care (01) ==
LOC: JP.ED 14:40
DX: L76.22 Postprocedural hemorrhage of skin and subcutaneous tissue following other procedure (principal); E78.00 Pure hypercholesterolemia, unspecified; I10 Essential (primary) hypertension; K21.9 Gastro-esophageal reflux disease without esophagitis; E11.9 Type 2 diabetes mellitus without complications; E66.9 Obesity, unspecified; Z68.31 Body mass index [BMI] 31.0-31.9, adult; Z87.891 Personal history of nicotine dependence; Z88.8 Allergy status to other drugs, medicaments and biological substances; Z79.82 Long term (current) use of aspirin; Z79.84 Long term (current) use of oral hypoglycemic drugs; Z79.899 Other long term (current) drug therapy
CPT/HCPCS: 36415; 76881-26; 76881-LT; 85018; 99282; 99284-25

== ENCOUNTER 2021-10-10 19:50 | Emergency (ER) | payer MEDICARE, BC ==
[2021-10-10] MEDS ORDERED: Nitroglycerin 0.4 MG Tab.SL SL PRN (19:57)
[2021-10-10] MEDS ORDERED: Aspirin 81 MG Tab.Chew PO ONE (19:57)
[2021-10-10] MEDS ORDERED: Morphine 4 MG/ML Syringe IVPUSH PRN (19:57)
[2021-10-10] MEDS ORDERED: Sodium Chloride 0.9% 10 ML Syringe FLUSH PRN (19:57)
[2021-10-10 20:32] LABS: ESTIMATED GFR 68 mL/min (>60); TROPONIN I HIGH SENSITIVITY 9.6 pg/mL (<=60.3)
[2021-10-10] MEDS ORDERED: glipiZIDE 5 MG Tab.ER PO STA (21:01)
[2021-10-10] MEDS ORDERED: metFORMIN 500 MG Tab PO STA (21:01)
[2021-10-10] MEDS ORDERED: Alum Hydrox/Mag Hydrox/Simeth 15 ML, Lidocaine 2% 15 ML PO ONE ×2 (21:38)
[2021-10-11] MEDS ORDERED: Heparin Sodium 5,000 Units/ML Vial IVPUSH ONE (00:52)
[2021-10-11] MEDS ORDERED: Clopidogrel 75 MG Tab PO ONE (00:52)
[2021-10-11] MEDS ORDERED: Ondansetron 4 MG/2 ML SDV IVPUSH PRN (00:52)
[2021-10-11] MEDS ORDERED: Heparin Sodium/D5W 25,000 UNITS/500 ML BAG IV SCH (01:00)
[2021-10-11] MEDS ORDERED: Acetaminophen 325 MG Tab PO PRN (01:26)
[2021-10-11] MEDS ORDERED: Albuterol 8 GM Inhaler INH PRN (01:28)
[2021-10-11] MEDS ORDERED: Acetaminophen/HYDROcodone 325-5 MG Tab PO PRN (01:28)
[2021-10-11] MEDS ORDERED: Aspirin 81 MG Tab.Chew PO SCH (05:00)
[2021-10-11] MEDS ORDERED: Pantoprazole 40 MG Tab.CR PO SCH (05:00)
[2021-10-11] MEDS ORDERED: glipiZIDE 5 MG Tab PO SCH (05:00)
[2021-10-11] MEDS ORDERED: amLODIPine 5 MG Tab PO SCH (05:00)
[2021-10-11] MEDS ORDERED: Isosorbide Mononitrate 30 MG Tab.ER PO SCH (05:00)
[2021-10-11] MEDS ORDERED: metFORMIN 500 MG Tab PO SCH (07:30)
[2021-10-11] MEDS ORDERED: Non-Formulary Medication 1 Each (Metformin Hcl [Metformin Hcl Er] 500 MG Tab.Sr.24h) PO SCH (09:00)
[2021-10-11] MEDS ORDERED: Nitroglycerin 0.4 MG Tab.SL SL ONE (12:26)
[2021-10-11 15:14] VITALS: BP 142/66; PULSE 63
[2021-10-11] MEDS ORDERED: Metoprolol Succinate 50 MG Tab.ER PO SCH (21:00)
[2021-10-11] MEDS ORDERED: Rosuvastatin 10 MG Tab PO SCH (21:00)
== END 2021-10-11 15:54 ==
LOC: JP.ED 19:50
DX: I21.4 Non-ST elevation (NSTEMI) myocardial infarction (principal); I25.10 Atherosclerotic heart disease of native coronary artery without angina pectoris; E78.00 Pure hypercholesterolemia, unspecified; I10 Essential (primary) hypertension; E66.9 Obesity, unspecified; Z68.29 Body mass index [BMI] 29.0-29.9, adult; Z88.8 Allergy status to other drugs, medicaments and biological substances; Z88.0 Allergy status to penicillin; Z79.899 Other long term (current) drug therapy; Z79.82 Long term (current) use of aspirin; Z79.84 Long term (current) use of oral hypoglycemic drugs; Z20.822 Contact with and (suspected) exposure to COVID-19
CPT/HCPCS: 36415; 71045; 80053; 82947; 84484; 85025; 85730; 93005; 93010; 96365; 96366; 96375; 99285; A9270; J1644; J3490; U0002

== ENCOUNTER 2022-08-02 16:05 | Emergency (ER) | payer OTHER, MEDICARE, BC ==
[2022-08-02 17:47] VITALS: BP 114/66; PULSE 69
== END 2022-08-02 18:46 | disposition home or self-care (01) ==
LOC: JP.ED 16:05
DX: S20.221A Contusion of right back wall of thorax, initial encounter (principal); I25.10 Atherosclerotic heart disease of native coronary artery without angina pectoris; E78.00 Pure hypercholesterolemia, unspecified; I10 Essential (primary) hypertension; K21.9 Gastro-esophageal reflux disease without esophagitis; E11.9 Type 2 diabetes mellitus without complications; E66.9 Obesity, unspecified; Z68.30 Body mass index [BMI] 30.0-30.9, adult; Z87.891 Personal history of nicotine dependence; Z79.82 Long term (current) use of aspirin; Z79.84 Long term (current) use of oral hypoglycemic drugs; Z79.899 Other long term (current) drug therapy; W22.09XA Striking against other stationary object, initial encounter; Y99.0 Civilian activity done for income or pay
CPT/HCPCS: 71046; 71046-26; 99001; 99282; 99283